=== PATIENT | male | born 1980 | race Caucasian/White ===

== ENCOUNTER 2019-10-31 18:19 | Emergency (ER) | payer OTHER ==
[~2019-10-31] VITALS: Ht 182.9 cm; Wt 109.3 kg
[~2019-10-31 18:19] MED LIST: HYDACE5 PO; IBUP800 PO
[2019-10-31 18:42] LABS: BASOPHILS ABSOLUTE AUTO 0.04 K/mm3 (0.00-0.23); BASOPHILS PERCENT AUTO 0 % (0-2); EOSINOPHILS PERCENT AUTO 0 % (0-6); IMMATURE GRAN ABSOLUTE AUTO 0.12 K/mm3 (0.00-0.10); IMMATURE GRAN PERCENT AUTO 1 % (0-1); LYMPHOCYTES ABSOLUTE AUTO 0.44 K/mm3 (0.84-5.20); LYMPHOCYTES PERCENT AUTO 3 % (21-46); MONOCYTES PERCENT AUTO 7 % (4-13); Mean Corpuscular HGB 32.1 pg (26.0-34.0); Mean Corpuscular Volume 95 fL (80-100); Mean Platelet Volume 10.9 fL (9.1-12.4); NEUTROPHILS PERCENT AUTO 90 % (41-73); Platelet Count 196 K/mm3 (150-400); RDW Coefficient Variation 13.3 % (11.7-14.2); RDW Standard Deviation 46.5 fL (35.1-46.3); Red Blood Cell Count 5.29 M/mm3 (4.30-5.90)
[2019-10-31 18:55] LABS: Albumin, Blood 3.7 g/dL (3.4-5.0); Albumin/Globulin Ratio 1.3 (0.8-1.8); Bun/Creatinine Ratio 11.7 (12.0-20.0); Calcium, Blood 8.3 mg/dL (8.5-10.1); Creatinine, Blood 1.71 mg/dL (0.60-1.20); Globulin, Blood 2.9 g/dL (2.2-4.0); Potassium, Blood 4.9 mmol/L (3.5-5.5); Total Protein, Blood 6.6 g/dL (6.4-8.2)
[2019-10-31] MEDS ORDERED: PROBIOTIC1 EACH PO (20:35)
[2019-10-31] MEDS ORDERED: Norco 5-325 Ta1 EACH PO (20:35)
[2019-10-31] MEDS ORDERED: NEOPOLHCSU RIGHTEAR (20:35)
== END 2019-10-31 21:13 | disposition home or self-care (01) ==
LOC: ER 18:19
PROVIDERS: Emergency Medicine
DX: K52.1 Toxic gastroenteritis and colitis (principal); T36.0X5A Adverse effect of penicillins, initial encounter; F17.200 Nicotine dependence, unspecified, uncomplicated
CPT/HCPCS: 74176; 80053; 82272; 83690; 85025; 93005; 93010; 96374; 96375; 99284-25; J2270; J2405; J7030

== ENCOUNTER 2020-01-19 23:22 | Inpatient (IN) | payer OTHER ==
[~2020-01-19] VITALS: Ht 182.9 cm; Wt 106.0 kg
[~2020-01-19 23:22] MED LIST changes: +NEOPOLHCSU RIGHTEAR; +Norco 5-325 Ta1 EACH PO; +PROBIOTIC1 EACH PO
[2020-01-19 23:56] LABS: BASOPHILS ABSOLUTE AUTO 0.08 K/mm3 (0.00-0.23); BASOPHILS PERCENT AUTO 0 % (0-2); EOSINOPHILS ABSOLUTE AUTO 0.05 K/mm3 (0.00-0.68); EOSINOPHILS PERCENT AUTO 0 % (0-6); Hematocrit 52.8 % (37.0-53.0); Hemoglobin 18.4 g/dL (13.5-17.5); IMMATURE GRAN ABSOLUTE AUTO 0.12 K/mm3 (0.00-0.10); IMMATURE GRAN PERCENT AUTO 1 % (0-1); LYMPHOCYTES ABSOLUTE AUTO 3.11 K/mm3 (0.84-5.20); LYMPHOCYTES PERCENT AUTO 15 % (21-46); MONOCYTES ABSOLUTE AUTO 1.02 K/mm3 (0.16-1.47); MONOCYTES PERCENT AUTO 5 % (4-13); Mean Corpuscular HGB Conc 34.8 g/dL (31.5-36.5); Mean Corpuscular Volume 92 fL (80-100); Mean Platelet Volume 10.9 fL (9.1-12.4); NEUTROPHILS ABSOLUTE AUTO 16.95 K/mm3 (1.96-9.15); NEUTROPHILS PERCENT AUTO 79 % (41-73); Platelet Count 264 K/mm3 (150-400); RDW Coefficient Variation 12.4 % (11.7-14.2); RDW Standard Deviation 42.1 fL (35.1-46.3); Red Blood Cell Count 5.75 M/mm3 (4.30-5.90); White Blood Cell Count 21.33 K/mm3 (4.00-11.30)
[2020-01-20 00:15] LABS: Alanine Aminotransfer (ALT/SGP 160 U/L (12-78); Albumin, Blood 4.3 g/dL (3.4-5.0); Albumin/Globulin Ratio 1.2 (0.8-1.8); Alk Phos 102 U/L (50-136); Anion Gap 9 mmol/L (6-16); Aspartate Aminotrans (AST/SGOT 50 U/L (12-37); Blood Urea Nitrogen 14 mg/dL (8-24); Bun/Creatinine Ratio 12.2 (12.0-20.0); CO2, Blood 21 mmol/L (21-32); Calcium, Blood 9.1 mg/dL (8.5-10.1); Chloride, Blood 109 mmol/L (98-108); Creatinine, Blood 1.15 mg/dL (0.60-1.20); Globulin, Blood 3.6 g/dL (2.2-4.0); Glomerular Filtration Rate >60 (60-); Glucose, Blood 130 mg/dL (70-99); Potassium, Blood 4.1 mmol/L (3.5-5.5); Sodium, Blood 139 mmol/L (136-145); Total Protein, Blood 7.9 g/dL (6.4-8.2)
--- NOTE | 2020-01-20 04:10 | NUR ---
ADMIT NOTE: ADMIT 39 YEAR OLD MALE TO ICU 6 MED TELE STATUS TO HOSPITALIST DR GOINS SERVICE. MONITOR PLACED SHOWING SINUS TACH /SINUS RHYTHM HEART RATE 90'S-100'S. C/O ABD PAIN 02/19. DR GOINS AT BEDSIDE ORDERS NOTED. PAS PLACED. TRACE PEDAL EDEMA NOTED. PEDAL PULSES PRESENT. BLOOD CONSENT AND RELEASE FOR MEDICAL INFORMATION COMPLETED. CONTINUE TO MONITOR AND REPORT CHANGE IN PATIENT CONDITION.
--- NOTE | 2020-01-20 06:00 | NUR ---
[id number] 95% ON RA. HR 104. RR 16. BS CLEAR. NO RESP DISTRESS NOTED. PT DENIES ANY PULMONARY HX OR TAKING ANY RESP MEDS AT HOME. BTAS 0. NO TX'S INDICATED AT THIS TIME.
[2020-01-20 06:13] LABS: BASOPHILS ABSOLUTE AUTO 0.06 K/mm3 (0.00-0.23); BASOPHILS PERCENT AUTO 0 % (0-2); EOSINOPHILS PERCENT AUTO 0 % (0-6); Hematocrit 49.8 % (37.0-53.0); Hemoglobin 17.2 g/dL (13.5-17.5); IMMATURE GRAN ABSOLUTE AUTO 0.13 K/mm3 (0.00-0.10); IMMATURE GRAN PERCENT AUTO 1 % (0-1); LYMPHOCYTES ABSOLUTE AUTO 0.72 K/mm3 (0.84-5.20); LYMPHOCYTES PERCENT AUTO 4 % (21-46); MONOCYTES ABSOLUTE AUTO 0.87 K/mm3 (0.16-1.47); MONOCYTES PERCENT AUTO 5 % (4-13); Mean Corpuscular HGB Conc 34.5 g/dL (31.5-36.5); Mean Corpuscular Volume 93 fL (80-100); NEUTROPHILS ABSOLUTE AUTO 15.48 K/mm3 (1.96-9.15); NEUTROPHILS PERCENT AUTO 90 % (41-73); Platelet Count 217 K/mm3 (150-400); RDW Coefficient Variation 12.7 % (11.7-14.2); RDW Standard Deviation 43.3 fL (35.1-46.3); Red Blood Cell Count 5.38 M/mm3 (4.30-5.90); White Blood Cell Count 17.26 K/mm3 (4.00-11.30)
--- NOTE | 2020-01-20 06:30 | NUR ---
SHIFT SUMMARY; RESTS QUIETLY WHEN UNDISTURBED. MONITOR INTACT SHOWING SINUS TACH. HEART RATE 100'S. PROTONIX GTT INITATED WITHOUT DIFFICULTY. LUNG SOUNDS CLEAR RESPIRATIONS REGULAR AND EASY AT REST. ABDOMEN FIRM DISTENDED TENDER. HYPO ACTIVE BOWIL SOUNDS. CONTINUE TO MONITOR AND REPORT CHANGE IN PATIENT CONDITION.
[2020-01-20 06:33] LABS: C-REACTIVE PROTEIN, EXT RANGE 2.05 mg/dL (0.000-0.300)
[2020-01-20 06:47] LABS: Albumin, Blood 3.7 g/dL (3.4-5.0); Albumin/Globulin Ratio 1.1 (0.8-1.8); Bilirubin, Total 1.5 mg/dL (0.1-1.0); Bun/Creatinine Ratio 12.6 (12.0-20.0); Calcium, Blood 8.1 mg/dL (8.5-10.1); Creatinine, Blood 1.43 mg/dL (0.60-1.20); Globulin, Blood 3.3 g/dL (2.2-4.0); Potassium, Blood 6.9 mmol/L (3.5-5.5)
--- NOTE | 2020-01-20 07:30 | NUR ---
Recieved report from Maria T MASON. Patient resting in bed. He is on RA aand sats upper 90%'s. He is alert and oriented and is able to communicate his needs. He has not has stool yet this am. He has Dr Lawson consult. He is up with one assist with line and tubes. He has 20ga IV in RAC dressing intact and sites WNL's and is infusing NS at 125ml/hr and Protonix at 10ml/hr.
[2020-01-20 08:41] LABS: Anion Gap 4 mmol/L (6-16); Blood Urea Nitrogen 18 mg/dL (8-24); Bun/Creatinine Ratio 13.5 (12.0-20.0); CO2, Blood 23 mmol/L (21-32); Chloride, Blood 110 mmol/L (98-108); Creatinine, Blood 1.33 mg/dL (0.60-1.20); Glomerular Filtration Rate >60 (60-); Glucose, Blood 128 mg/dL (70-99); Sodium, Blood 137 mmol/L (136-145)
[2020-01-20 08:43] LABS: Potassium, Blood 6.3 mmol/L (3.5-5.5)
[2020-01-20 09:27] LABS: Campylobacter Sp Not Detected (NOT DETECT)
[2020-01-20 09:28] LABS: Adenovirus F 40/41 Not Detected (NOT DETECT); Astrovirus Not Detected (NOT DETECT); Cryptosporidium Not Detected (NOT DETECT); Cyclospora Cayetanensis Not Detected (NOT DETECT); E. Coli O157 Not Detected (NOT DETECT); Entamoeba Histolytica Not Detected (NOT DETECT); Enteroaggregative E. coli-EAEC Not Detected (NOT DETECT); Enteropathogenic E. coli-EPEC Not Detected (NOT DETECT); Enterotoxigenic E. coli-ETEC Not Detected (NOT DETECT); Giardia Lamblia Not Detected (NOT DETECT); Norovirus GI/GII Not Detected (NOT DETECT); Plesiomonas Shigelloides Not Detected (NOT DETECT); Rotavirus A Not Detected (NOT DETECT); Salmonella Sp Not Detected (NOT DETECT); Sapovirus Not Detected (NOT DETECT); Shiga Toxin-prod E. coli-STEC Not Detected (NOT DETECT); Shigella/Enteroin E. coli-EIEC Not Detected (NOT DETECT); Vibrio Cholerae Not Detected (NOT DETECT); Vibrio Sp Not Detected (NOT DETECT); Yersinia Enterocolitica Not Detected (NOT DETECT)
--- NOTE | 2020-01-20 09:30 | NUR ---
Dr Lawson by and consulted. Clear Liquid diet OK. He was up and had BM and flushed before seing it. Started on ABX. Called Dr Ring and had him place orders in for repeat potassium of 6.3. and NS increased to 200ml/hr for 1 liter. Started 20ga IV in LFA.
--- NOTE | 2020-01-20 10:43 | NUR ---
C-Diff neg. and is no longer on Isolation.
--- NOTE | 2020-01-20 13:49 | NUR ---
Patient has been up several times top bathroom and has unformed stool maroon in color. He has tolerated clear liq. diet. he is mostly independent in room. VSS, See EMR.
[2020-01-20 14:43] LABS: Anion Gap 6 mmol/L (6-16); Blood Urea Nitrogen 15 mg/dL (8-24); Bun/Creatinine Ratio 13.8 (12.0-20.0); CO2, Blood 22 mmol/L (21-32); Calcium, Blood 8.4 mg/dL (8.5-10.1); Chloride, Blood 110 mmol/L (98-108); Creatinine, Blood 1.09 mg/dL (0.60-1.20); Glomerular Filtration Rate >60 (60-); Glucose, Blood 92 mg/dL (70-99); Sodium, Blood 138 mmol/L (136-145)
[2020-01-20 14:44] LABS: Potassium, Blood 4.1 mmol/L (3.5-5.5)
--- NOTE | 2020-01-20 16:28 | NUR ---
Patient has been resting. Dr Walter came by and went over procedure for 1300 tomorrow. Prep starts at 1800 and 2nd half at 0800. VSS, See EMR. Patient denies any current needs. Patient positions self for comfort.
--- NOTE | 2020-01-20 18:43 | NUR ---
Patient started prep at 1800 and is tolerating well. He has been up to bedside cammode frequently and has brown liquid stool with some steaking of blood. VSS. He remains independent in room and calls appropriately when needing assistance. patient trts to rest between episodes. He remains St -SR 80-110, And as well on RA with sats >90%.
--- NOTE | 2020-01-20 21:53 | NUR ---
ASSUMED CARE OF PT, REPORT RCV'D FROM MARLON POTTER. PT ALERT AND ORIENTED, PT ABLE TO INDEPENDENTLY AMBULATE TO USE TOILET. PT COMPLAINS OF ABDOMINAL PAIN WITH PALPATION, TREATED PER EMAR. PT STARTED BOWEL PREP AT 1800, PT CURRENLTY HAVING LOOSE STOOL. PT UPDATED ON PLAN OF CARE AND SCOPE FOR TOMORROW AFTERNOON. SEE FULL SHIFT ASSESSMENT.
[2020-01-21 05:15] LABS: BASOPHILS ABSOLUTE AUTO 0.04 K/mm3 (0.00-0.23); BASOPHILS PERCENT AUTO 1 % (0-2); EOSINOPHILS ABSOLUTE AUTO 0.05 K/mm3 (0.00-0.68); EOSINOPHILS PERCENT AUTO 1 % (0-6); Hematocrit 42.2 % (37.0-53.0); Hemoglobin 14.2 g/dL (13.5-17.5); IMMATURE GRAN ABSOLUTE AUTO 0.04 K/mm3 (0.00-0.10); IMMATURE GRAN PERCENT AUTO 1 % (0-1); LYMPHOCYTES ABSOLUTE AUTO 2.15 K/mm3 (0.84-5.20); LYMPHOCYTES PERCENT AUTO 29 % (21-46); MONOCYTES ABSOLUTE AUTO 0.51 K/mm3 (0.16-1.47); MONOCYTES PERCENT AUTO 7 % (4-13); Mean Corpuscular HGB 31.7 pg (26.0-34.0); Mean Corpuscular HGB Conc 33.6 g/dL (31.5-36.5); Mean Corpuscular Volume 94 fL (80-100); Mean Platelet Volume 10.5 fL (9.1-12.4); NEUTROPHILS ABSOLUTE AUTO 4.57 K/mm3 (1.96-9.15); NEUTROPHILS PERCENT AUTO 62 % (41-73); Platelet Count 158 K/mm3 (150-400); RDW Coefficient Variation 12.8 % (11.7-14.2); RDW Standard Deviation 44.4 fL (35.1-46.3); Red Blood Cell Count 4.48 M/mm3 (4.30-5.90); White Blood Cell Count 7.36 K/mm3 (4.00-11.30)
[2020-01-21 05:41] LABS: Anion Gap 4 mmol/L (6-16); Blood Urea Nitrogen 11 mg/dL (8-24); Bun/Creatinine Ratio 10.5 (12.0-20.0); CO2, Blood 24 mmol/L (21-32); Calcium, Blood 8.2 mg/dL (8.5-10.1); Chloride, Blood 110 mmol/L (98-108); Creatinine, Blood 1.05 mg/dL (0.60-1.20); Glomerular Filtration Rate >60 (60-); Glucose, Blood 101 mg/dL (70-99); Potassium, Blood 4.1 mmol/L (3.5-5.5); Sodium, Blood 138 mmol/L (136-145)
--- NOTE | 2020-01-21 13:56 | NUR ---
01/21/20 1356 Iraj Mazariegos History, Chart, Medications and Allergies reviewed before start of procedure.MONITOR INTACT WITH CONTINUOUS PULSE OXIMETRY AND INTERMITTENT BP.3-LEAD EKG REVIEWED WITH PHYSICIAN PRIOR TO START OF PROCEDURE.O2 VIA N/C INTACT THROUGHOUT SEDATION/PROCEDURE. PATIENT DETERMINED TO BE ASA APPROPRIATE FOR PROPOFOL SEDATION PRIOR TO START OF PROCEDURE BY DR. ESTRADA.
--- NOTE | 2020-01-21 14:50 | NUR ---
PT REPORT GIVEN TO KEV HUTSON RN. PT AWAKE AND ORIENTED.
[2020-01-21] MEDS ORDERED: LISI20 PO (15:53)
--- NOTE | 2020-01-21 16:12 | NUR ---
ALERT. ORIENTED. HAD COLONOSCOPY AND TOLERATED WELL. DENIES PAIN. FOOD ADVANCED TO FULL LIQUID. PER POST OP RN WILL SEE HIM TOMORROW. UNLABORED RESPIRATIONS. INDEPENDENT IN ROOM. PATIENT HAS GIVEN UPDAT. THIS RN HAS TALKED TO MOTHER AND GIVEN HER UPDAT. WCTM
--- NOTE | 2020-01-21 17:39 | NUR ---
THIS RN TALKED TO VIA CELL PHONE. STS DID NOT FIND ANY RESON FOR HIS SYMPTOMS AND IF WANTS TO LEAVE HE CAN. NEEDS TO F/U IN HIS OFFICE. NOTIFIED AND WRITE D'C ORDERS.
--- NOTE | 2020-01-21 18:20 | NUR ---
REVIEW D'C. AWARE TO MAKE APPT W/ TO GET RESULTS OF COLONOSCOPY. ADVISED SOFT DIET THEN GRADUALLY ADVANCE. ADVISED ; NO ETOH OR DRIVING FOR 24 HOURS. ADVISED CAN RETURN TO E.R IF NEEDED. AWAITING IV ANTIBIOTICS TO GO IN. STS WILL COME AND GET HIM
--- NOTE | 2020-01-21 18:47 | NUR ---
WALKED DOWN TO E.R. TENT BY RN, WAITING FOR RIDE
== END 2020-01-21 18:41 | disposition home or self-care (01) | DRG 392 ==
LOC: ER 23:22 → ICUE 23:23 → ICUW 23:23 → ICUE 01-20 03:46 → MEDS 01-21 02:05
PROVIDERS: Emergency Medicine; Hospitalist; Internal Medicine Gastroenterology; ADMIT Internal Medicine
PROC: 0DBM8ZZ Excision of Descending Colon, Via Natural or Artificial Opening Endoscopic (ICD-10-PCS; principal; 2020-01-21 13:00)
PROC: 0DBN8ZZ Excision of Sigmoid Colon, Via Natural or Artificial Opening Endoscopic (ICD-10-PCS; 2020-01-21 13:00)
DX: K52.9 Noninfective gastroenteritis and colitis, unspecified (principal); N17.9 Acute kidney failure, unspecified; R65.10 Systemic inflammatory response syndrome (SIRS) of non-infectious origin without acute organ dysfunction; F17.210 Nicotine dependence, cigarettes, uncomplicated; K63.5 Polyp of colon; K62.1 Rectal polyp; E87.5 Hyperkalemia
CPT/HCPCS: 0097U; 36415; 74176; 80048; 80053; 83605; 83690; 85025; 85651; 86140; 88305; 93005; 93010; 96361; 96365; 96366; 96368; 96374; 96375; 99285-25; C9113; G0378; J0610; J0744; J1170; J1815; J2250; J2405; J2704; J3010; J7030; J7120; U0002

== ENCOUNTER 2020-01-24 12:26 | Emergency (ER) | payer OTHER ==
[~2020-01-24] VITALS: Ht 182.9 cm; Wt 108.9 kg
[~2020-01-24 12:26] MED LIST changes: +LISI20 PO
== END 2020-01-24 15:45 | disposition home or self-care (01) ==
LOC: ER 12:26
DX: I80.8 Phlebitis and thrombophlebitis of other sites (principal); F17.200 Nicotine dependence, unspecified, uncomplicated; Z79.899 Other long term (current) drug therapy
CPT/HCPCS: 93971; 99283-25

== ENCOUNTER 2021-04-14 02:34 | Emergency (ER) | payer OTHER ==
[~2021-04-14] VITALS: Ht 182.9 cm; Wt 106.6 kg
== END 2021-04-14 03:18 | disposition home or self-care (01) ==
LOC: ER 02:34
DX: U07.1 COVID-19 (principal)
CPT/HCPCS: 99283

== ENCOUNTER 2022-12-14 05:24 | Emergency (ER) | payer OTHER ==
[~2022-12-14] VITALS: Ht 182.9 cm; Wt 108.9 kg
[2022-12-14 05:56] LABS: BASOPHILS ABSOLUTE AUTO 0.07 K/mm3 (0.00-0.23); BASOPHILS PERCENT AUTO 1 % (0-2); EOSINOPHILS ABSOLUTE AUTO 0.09 K/mm3 (0.00-0.68); EOSINOPHILS PERCENT AUTO 1 % (0-6); Hematocrit 45.8 % (37.0-53.0); Hemoglobin 16.2 g/dL (13.5-17.5); IMMATURE GRAN ABSOLUTE AUTO 0.04 K/mm3 (0.00-0.10); IMMATURE GRAN PERCENT AUTO 1 % (0-1); LYMPHOCYTES ABSOLUTE AUTO 2.59 K/mm3 (0.84-5.20); LYMPHOCYTES PERCENT AUTO 34 % (21-46); MONOCYTES ABSOLUTE AUTO 0.44 K/mm3 (0.16-1.47); MONOCYTES PERCENT AUTO 6 % (4-13); Mean Corpuscular HGB 32.3 pg (26.0-34.0); Mean Corpuscular HGB Conc 35.4 g/dL (31.5-36.5); Mean Corpuscular Volume 91 fL (80-100); NEUTROPHILS ABSOLUTE AUTO 4.32 K/mm3 (1.96-9.15); NEUTROPHILS PERCENT AUTO 57 % (41-73); Platelet Count 185 K/mm3 (150-400); RDW Coefficient Variation 12.7 % (11.7-14.2); RDW Standard Deviation 42.1 fL (35.1-46.3); Red Blood Cell Count 5.01 M/mm3 (4.30-5.90); White Blood Cell Count 7.55 K/mm3 (4.00-11.30)
[2022-12-14 06:26] LABS: Albumin, Blood 3.8 g/dL (3.4-5.0); Albumin/Globulin Ratio 1.3 (0.8-1.8); Bun/Creatinine Ratio 15.2 (12.0-20.0); Creatinine, Blood 1.05 mg/dL (0.60-1.20); Total Protein, Blood 6.8 g/dL (6.4-8.2)
[2022-12-14] MEDS ORDERED: HYDCOR2.5C PR (06:40)
[2022-12-14 06:50] VITALS: BP 124/89
== END 2022-12-14 06:50 | disposition home or self-care (01) ==
LOC: ER 05:24
PROVIDERS: Student in an Organized Health Care Education/Training Program
DX: K64.5 Perianal venous thrombosis (principal); F17.210 Nicotine dependence, cigarettes, uncomplicated
CPT/HCPCS: 80053; 85025; 99283

== ENCOUNTER 2023-02-28 07:48 | Emergency (ER) | payer OTHER ==
[~2023-02-28] VITALS: Ht 180.3 cm; Wt 113.4 kg
[~2023-02-28 07:48] MED LIST changes: +HYDCOR2.5C PR
[2023-02-28] MEDS ORDERED: HYDCOR2.5C PR (08:22)
[2023-02-28 09:10] VITALS: BP 151/109
== END 2023-02-28 09:12 | disposition home or self-care (01) ==
LOC: ER 07:48
DX: K64.4 Residual hemorrhoidal skin tags (principal); I10 Essential (primary) hypertension; F17.210 Nicotine dependence, cigarettes, uncomplicated; Z79.899 Other long term (current) drug therapy
CPT/HCPCS: 82272; 99283